=== PATIENT | male | born 1995 | race African-American/Black ===

== ENCOUNTER 2020-12-09 12:31 | Inpatient (IN) | payer MEDICAID, OTHER ==
[~2020-12-09] VITALS: Ht 175.3 cm; Wt 69.6 kg
[2020-12-09 13:43] LABS: HEMATOCRIT 43.2 % (42.0-52.0); HEMOGLOBIN 14.7 g/dl (13.5-17.5); MEAN CORPUSCULAR HEMOGLOBIN 30.3 pg (27.0-33.0); MEAN CORPUSCULAR VOLUME 89.1 fl (80.0-96.0); PLATELET COUNT, AUTOMATED 336 10^3/uL (150-450); RED BLOOD COUNT 4.85 10^6/uL (4.30-6.10); WHITE BLOOD COUNT 4.5 10^3/uL (4.0-10.0)
[2020-12-09 14:12] LABS: ACETAMINOPHEN LEVEL < 2.0 UG/ML (10.0-30.0); ALBUMIN 4.9 GM/DL (3.2-5.2); ALT/SGPT 46 U/L (12-78); BILIRUBIN,DIRECT 0.4 MG/DL (0.0-0.2); BILIRUBIN,TOTAL 1.3 MG/DL (0.2-1.0); BLOOD UREA NITROGEN 10 MG/DL (7-18); CALCIUM LEVEL 9.7 MG/DL (8.5-10.1); CARBON DIOXIDE LEVEL 25 MEQ/L (21-32); CHLORIDE LEVEL 105 MEQ/L (98-107); CREATININE FOR GFR 0.93 MG/DL (0.70-1.30); ETHYL ALCOHOL (ETHANOL) 0.103 % (0.000-0.010); GLOMERULAR FILTRATION RATE > 60.0 (>60); GLUCOSE, FASTING 90 MG/DL (70-100); POTASSIUM SERUM 3.9 MEQ/L (3.5-5.1); SALICYLATE LEVEL < 1.7 MG/DL (5.0-30.0); SODIUM LEVEL 141 MEQ/L (136-145); THYROID STIMULATING HORMONE 0.503 uIU/ML (0.358-3.740); TOTAL PROTEIN 8.1 GM/DL (6.4-8.2)
[2020-12-09] MEDS ORDERED: OLANZapine ORAL DISINTEGRATING TAB 5MG PO ONE (15:40)
[2020-12-09] MEDS ORDERED: LORazepam 2 MG/ML VIAL IM ONE (15:55)
[2020-12-09] MEDS ORDERED: diphenhydrAMINE 50MG/ML VIAL (J1200) IM ONE (15:55)
[2020-12-09] MEDS ORDERED: HALOPERIDOL 5MG/ML VIAL (J1630 PER 1) IM ONE (15:55)
[2020-12-09] MEDS ORDERED: LORazepam 2 MG/ML VIAL As Ordered ONE (16:17)
[2020-12-09 19:14] LABS: AMPHETAMINES LEVEL URINE NEGATIVE (NEGATIVE); BARBITURATES URINE NEGATIVE (NEGATIVE); BENZODIAZEPINES URINE NEGATIVE (NEGATIVE); CANNABINOIDS URINE POSITIVE (NEGATIVE); COCAINE METABOLITE URINE POSITIVE (NEGATIVE); METHADONE URINE NEGATIVE (NEGATIVE); OPIATES URINE NEGATIVE (NEGATIVE); PHENCYCLIDINE URINE NEGATIVE (NEGATIVE)
[2020-12-10 04:15] LABS: RSV AMPLIFICATION NEGATIVE (NEGATIVE)
[2020-12-10] MEDS ORDERED: LITH45TASA (08:31)
[2020-12-10] MEDS ORDERED: MOM 30ML SUSPENSION UDC PO PRN (12:10)
[2020-12-10] MEDS ORDERED: MAALOX 30 ML SUSP *UDC PO PRN (12:10)
[2020-12-10] MEDS ORDERED: ACETAMINOPHEN TAB 650MG DOSE (2X325MG) PO PRN (12:10)
[2020-12-10 13:53] VITALS: BP 139/89
[2020-12-10] MEDS: OLANZapine ORAL DISINTEGRATING TAB 5MG PO PRN (20:53)
[2020-12-10] MEDS: traZODone 50 MG TAB PO PRN (20:53)
[2020-12-11 06:30] VITALS: BP 156/92
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
[2020-12-11 18:59] VITALS: BP 99/50
--- NOTE | 2020-12-11 20:06 | HPEPDOC ---
[facility] Medical History & Physical Date of Admission December 10, 2020 Date of Service: December 11, 2020 History and Physical CHIEF COMPLAINT: Schizophrenia HISTORY OF PRESENT ILLNESS: Mr. Sanchez is a 25 year old male with schizophrenia who is in the inpatient mental health unit for erratic behavior. He was seen this afternoon. Denies any fever/chills, chest pain, dyspnea, abdominal pain, dysuria, or diarrhea. Denies any past medical history or past surgical history. He has no complaints and no further questions. PAST MEDICAL HISTORY: 1. Schizophrenia 2. Sickle cell trait (mother has sickle cell disease) PAST SURGICAL HISTORY: Denies any past surgical history SOCIAL HISTORY: Tobacco use: Current smoker ETOH: Occasionally drinks alcohol Illicit drug use: Smokes marijuana FAMILY HISTORY: Father: Seizure disorder Mother: Sickle cell disease ALLERGIES: Please see below. REVIEW OF SYSTEMS: CONSTITUTIONAL: Denies any fever or chills. ENT: Denies sore throat. RESPIRATORY: Denies shortness of breath. Denies cough. CARDIOVASCULAR: Denies chest pain. GASTROINTESTINAL: Denies abdominal pain. Denies diarrhea. Denies constipation GENITOURINARY: Denies dysuria. CUTANEOUS: Denies rashes. MUSCULOSKELETAL: Denies muscle weakness. NEUROLOGICAL: Denies neuropathy. Denies paresthesias. PSYCHOLOGICAL: Denies anxiety. Denies depression. HOME MEDICATIONS: Please see below. PHYSICAL EXAMINATION: VITAL SIGNS: Temperature 98.6, pulse 63, respiratory rate 18, blood pressure 99/50, pulse oximetry 100 % on room air. GENERAL: Comfortable, in no apparent distress. HEENT: Head normocephalic/atraumatic, EOMI, sclera clear. NECK: Supple, no JVD. RESPIRATORY: Lungs clear to auscultation bilaterally, no rales, wheeze or r honchi. CARDIOVASCULAR: Regular rate and rhythm. ABDOMEN: Soft, nontender, no guarding or rebound tenderness. Normal bowel sound s. MUSCLE SKELETAL: Muscle strength 5/5 in all extremities. NEUROLOGICAL: CN 312 grossly intact, no focal deficits noted. PSYCHOLOGICAL: Normal mood and affect LABORATORY DATA: See below. IMAGING: None MICROBIOLOGY: Please see below. ASSESSMENT AND PLAN: 1. Schizophrenia Being managed in the inpatient mental health unit Patient is noncompliant with lithium 2. Recreational drug use Urine infections positive for cocaine and cannabis Thank you for consulting us. We will sign off at this time. If there is any further questions or concerns, please do not hesitate to reconsult us. Vital Signs Vital Signs Date Time Temp Pulse Resp B/P (MAP) Pulse Ox O2 Delivery O2 Flow Rate FiO2 12/11/20 18:59 98.6 63 18 99/50 (66) 12/11/20 06:30 100 Room Air Home Medications Scheduled [employer] Carbonate ([employer] Carbonate ER) 450 Mg Tablet.er, QHS Allergies Coded Allergies: No Known Allergies (Unverified , 12/10/20) A-FIB/CHADSVASC A-FIB History Current/History of A-Fib/PAF?: No NURIA FRANKLIN DO December 11, 2020 20:06
[2020-12-11] MEDS: traZODone 50 MG TAB PO PRN (21:24)
[2020-12-12 06:15] VITALS: BP 129/78
[2020-12-12] MEDS: OLANZapine ORAL DISINTEGRATING TAB 5MG PO PRN (09:21)
[2020-12-12] MEDS ORDERED: LITH150C PO (10:33)
[2020-12-12] MEDS ORDERED: LITH45TASA PO (10:38)
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
[2020-12-13] MEDS ORDERED: LITHIUM CARBONATE 150 MG CAP PO SCH (09:00)
[2021-12-12] MEDS ORDERED: LITHIUM CARBONATE 150 MG CAP PO SCH (09:00)
== END 2020-12-12 12:20 | disposition home or self-care (01) | DRG 750 ==
LOC: M ED 12:31 → M ED INP 12-10 12:10 → M PSY 12-10 13:47
PROVIDERS: ADMIT Psychiatry & Neurology Psychiatry; ATTEND Psychiatry & Neurology Psychiatry
DX: F25.0 Schizoaffective disorder, bipolar type (principal); F12.10 Cannabis abuse, uncomplicated; F10.10 Alcohol abuse, uncomplicated; F15.10 Other stimulant abuse, uncomplicated; F17.200 Nicotine dependence, unspecified, uncomplicated; Z91.14 Patient's other noncompliance with medication regimen; Z79.899 Other long term (current) drug therapy